=== PATIENT | female | born 1955 | race Caucasian/White ===

== ENCOUNTER → 2017-08-27 | Outpatient (CLI) | payer BC ==
--- NOTE | 2017-08-27 15:54 | RADIOLOGY REPORT (SQ) ---
EXAM DESCRIPTION: MRI LT LOWER JOINT COMBO COMPLETED DATE/TIME: 08/27/2017 12:12 pm REASON FOR STUDY: M25.462 EFFUSION, LEFT KNEE M25.562 PAIN IN LEFT KNEE M25.462 EFFUSION, LEFT KNEE M25.562 PAIN IN LEFT KNEE COMPARISON: None. TECHNIQUE: Leftknee images acquired and stored on PACS. Multiplanar images include fat sensitive se quences as T1, water sensitive sequences as FST2 or STIR, cartilage sensitive sequences as FSPD, and gradient echo sequences. Postcontrast enhanced imaging fat sat T1. Contrast: 15 cc ProHance Renal function: GFR greater than 60 LIMITATIONS: None. FINDINGS: JOINT AND BURSAE: Joint effusion. There is a small popliteal cyst. There is also a small pes anserinus bursal effusion. BONE CORTEX AND MARROW: No alteration of signal to suggest marrow replacement. No worrisome bone lesi ons. No occult fracture. ACL: Intact. No degeneration or ganglion cyst. PCL: Intact. MCL: Intact. No periligamentous edema or fluid. LCL: Intact. No periligamentous edema or fluid. MEDIAL MENISCUS: No tears. No abnormal signal. LATERAL MENISCUS: No tears. No abnormal signal. MEDIAL COMPARTMENT: Cartilaginous loss along the medial femoral condyles. LATERAL COMPARTMENT: Cartilage preserved. No bone bruises or reactive marrow edema. No osteophytes. PATELLA: Generalize chondromalacia patella. Reactive marrow edema along the lateral facet. EXTENSOR MECHANISM: Intact. Quadriceps and patella tendons normal. SOFT TISSUES: Adjacent muscles and subcutaneous tissues normal. Normal flow void in popliteal artery and vein. OTHER: No enhancing lesions. IMPRESSION: Joint effusion. Small popliteal cyst. Small pes anserinus bursal effusion which may account for the palpable mass Cartilaginous loss along the medial compartment with focal subchondral cyst/osteochondral lesion. Generalize chondromalacia of the patella. TECHNICAL DOCUMENTATION: JOB ID: [id number] [employer]- All Rights Reserved
== END ==
LOC: RAD 11:02
PROVIDERS: ATTEND Orthopaedic Surgery
DX: M25.462 Effusion, left knee (principal); M25.562 Pain in left knee
CPT/HCPCS: 82565; 73723; A9576